=== PATIENT | male | born 1980 | race African-American/Black ===

== ENCOUNTER 2016-12-19 16:13 | Emergency (ER) | payer MEDICAID, OTHER ==
[~2016-12-19] VITALS: Ht 175.3 cm; Wt 95.0 kg
[~2016-12-19 16:13] MED LIST: AMOX500T2; INDO50CA2; NO MEDS; OMEP20CA10
[2016-12-19 16:19] VITALS: BP 141/83
== END 2016-12-19 19:28 | disposition left against medical advice (07) ==
LOC: ER 16:13
DX: M79.672 Pain in left foot (principal); Z53.21 Procedure and treatment not carried out due to patient leaving prior to being seen by health care provider